=== PATIENT | male | born 1945 | race American Indian/Alaskan Native ===

== ENCOUNTER 2020-07-12 11:05 | Outpatient (CLI) | payer MEDICARE ==
--- NOTE | 2020-07-15 08:09 | XRay Report ---
LEFT HIP 2 VIEWS INDICATION: HIP PAIN, CHRONIC LEFT M25.552. 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 There appears to be an approximate 2 to 3 cm area of irregularity in the superior left femoral head concerning for osteonecrosis which is new since the previous exam. The pelvic bones are intact. Degenerative changes are noted in the lower lumbar spine as well. Consider further evalu ation with MRI left hip. Signer Name: Mele Turcios Jr, MD Signed: 07/12/2020 12:25 PM Workstation Name: [id number]
== END 2020-07-12 11:06 | disposition home or self-care (01) ==
LOC: SPVIMAG 11:05
PROVIDERS: ATTEND Internal Medicine
DX: M16.12 Unilateral primary osteoarthritis, left hip (principal)